=== PATIENT | female | born 1970 | race Two or more races ===

== ENCOUNTER 2019-10-24 17:02 | Emergency (ER) | payer SELFPAY ==
[~2019-10-24] VITALS: Ht 152.4 cm; Wt 55.0 kg
[2019-10-24] MEDS ORDERED: IV NORMAL SALINE 1000ML BAG 1,000 ML IV SCH (17:36)
[2019-10-24 17:52] LABS: BILIRUBIN,URINE NEGATIVE (NEG); CLARITY,URINE CLEAR; COLOR,URINE YELLOW; NITRITE,URINE NEGATIVE (NEG); PH,URINE 6.5 (<5.0-8.0); PROTEIN,URINE NEGATIVE (NEG-TRACE)
--- NOTE | 2019-10-24 17:56 | PHYS DOC ---
Past Medical History Past Medical History: High Cholesterol, Hypertension (AUGUSTINA HAMPTON MD) General Adult EDM: Chief Complaint: FLANK PAIN HPI: HPI: Patient is a 49 year old English-speaking female with history of hypertension and dyslipidemia who presents with complaining of back pain. History was taken via translating line. Patient states she had bilateral arm pain since September 28 and later on the pain moved to her bilateral lower back as a constant pain without radiation. Patient states she has more pain in right hip. Patient complaining of urinary frequency and dysuria that treated with antibiotic in August with improvement of her condition. Patient denies nausea and vomiting, diarrhea and constipation, fever and chills, chest pain or shortness of breath. Patient complaining of generalized weakness and dizziness. Patient stated she had frequent bowel movements without diarrhea. Patient lost 22 pounds for the last couple months. Patient was seen by her primary care physician 4 days ago and had labs and medication without improvement of her condition. Patient rated her pain 8/10. (AUGUSTINA HAMPTON MD) Review of Systems: Review of Systems: Constitutional: Denies fever or chills. [] Eyes: Denies change in visual acuity. [] HENT: Denies nasal congestion or sore throat. [] Respiratory: Denies cough or shortness of breath. [] Cardiovascular: Denies chest pain or edema. [] GI: Denies abdominal pain, nausea, vomiting, bloody stools or diarrhea. [] : Denies dysuria. [] Musculoskeletal: Reports back pain and joint pain Integument: Denies rash. [] Neurologic: Denies headache, focal weakness or sensory changes. [] Endocrine: Denies polyuria or polydipsia. [] Lymphatic: Denies swollen glands. [] Psychiatric: Denies depression or anxiety. [] (AUGUSTINA HAMPTON MD) Heart Score: Risk Factors: Risk Factors: DM, Current or recent (<one month) smoker, HTN, HLP, family history of CAD, obesity. Risk Scores: Score 0 - 3: 2.5% MACE over next 6 weeks - Discharge Home Score 4 - 6: 20.3% MACE over next 6 weeks - Admit for Clinical Observation Score 7 - 10: 72.7% MACE over next 6 weeks - Early Invasive Strategies (AUGUSTINA HAMPTON MD) Current Medications: Current Medications Medications (Trade) Dose Ordered Sig/Jacky Start Time Stop Time Status Last Admin Dose Admin Sodium Chloride 1,000 ml @ 1,000 mls/hr Q1H 10/24/19 17:36 10/24/19 18:35 UNV (AUGUSTINA HAMPTON MD) Physical Exam: PE: Constitutional: Well developed, well nourished, mild distress, non-toxic appearance. [] HENT: Normocephalic, atraumatic. Eyes: PERRLA, EOMI, conjunctiva normal, no discharge. [] Neck: Normal range of motion, no tenderness, supple, no stridor. [] Cardiovascular: Tachycardic, no murmur [] Lungs & Thorax: Bilateral breath sounds clear to auscultation [] Abdomen: Bowel sounds normal, soft, no tenderness, no masses, no pulsatile masses. [] Skin: Warm, dry, no erythema, no rash. [] Back: No tenderness, no CVA tenderness. [] Extremities: No tenderness, no cyanosis, no clubbing, ROM intact, no edema. [] Neurologic: Alert and oriented X 3, no focal deficits noted. [] Psychologic: Affect normal, judgement normal, mood normal. [] (AUGUSTINA HAMPTON MD) EKG: EKG: EKG interpreted by me. EKG at 1745 showed sinus rhythm at rate of 100, poor R wave progression anteroseptal leads, PA and QT intervals, no acute ST and T wave elevation. (AUGUSTINA HAMPTON MD) Radiology/Procedures: Radiology/Procedures: [] (AUGUSTINA HAMPTON MD) Impression: PROCEDURE: CT ABD PELV W/ IV CONTRST ONLY Exam: CT of abdomen and pelvis with contrast INDICATION: Tachycardia TECHNIQUE: Sequential axial images through the abdomen and pelvis obtained following the administration of 75 mL of Omni 300 IV contrast. Sagittal and coronal reformatted images were reconstructed from the axial data and reviewed. Comparisons: None FINDINGS: Heart size is normal. No pericardial effusion. Strandy opacities at dependent portion lungs likely representing atelectasis. No pleural effusion. Liver, spleen, pancreas, gallbladder and adrenals are unremarkable. Kidneys demonstrate symmetric enhancement. No perinephric inflammation or hydronephrosis. No renal or ureteral calculi. Bladder is distended and appears thin-walled. Uterus is nonenlarged. No abnormal adnexal mass. Mild wall thickening involving the descending colon. The remainder of the large and small bowel are unremarkable. Appendix is not identified. No free intra-abdominal air or fluid. Abdominal aorta has a normal course and caliber. Abdominal vasculature is patent. No enlarged abdominal lymph nodes are identified. No suspicious osseous lesions or acute fractures. IMPRESSION: Mild wall thickening involving the descending colon. Findings may relate to mild colitis may be infectious or inflammatory in etiology. Exposure: One or more of the following in the visualized dose reduction techniques were utilized for this examination: 1. Automated exposure control 2. Adjustment of the MA and/or KV according to patient size 3. Use of iterative of reconstructive technique Electronically signed by: Joleen Guerrero MD (10/24/2019 6:57 PM) [id number] DICTATED and SIGNED BY: JOLEEN GUERRERO MD DATE: 10/24/191856 (TAVON RADER Jr., DO) Course & Med Decision Making: Course & Med Decision Making Pertinent Labs and Imaging studies are pending. Evaluation of patient inertial 49-year-old English-speaking female patient complaining of several problem for several weeks including arm pain and back pain and increase of bowel movement and losing weight. Patient had tachycardia of 117 at arrival to ER that decreased to 100 with rest. Labs and chest x-ray and CT abdomen pelvis is pending. There is a concern for hyperthyroidism or electrolyte problem. Sign out given to Dr. Rader at 1800 for further evaluation and final disposition. Discussed current findings and plan with patient and family, who acknowledge understanding and agreement. (AUGUSTINA HAMPTON MD) Dragon Disclaimer: Dragon Disclaimer: This electronic medical record was generated, in whole or in part, using a voice recognition dictation system. (AUGUSTINA HAMPTON MD) Departure Departure Impression: Primary Impression: Back pain Qualified Codes: M54.5 - Low back pain Additional Impressions: Colitis Weight loss Disposition: HOME, SELF-CARE Condition: STABLE Referrals: NO PCP (PCP) Patient Instructions: Back Pain, Adult, Colitis Scripts Acetaminophen With Codeine (TYLENOL WITH CODEINE #3 TABLET) 1 Each Tablet 1 TAB PO PRN Q6HRS PRN for PAIN, #12 TAB Prov: TAVON RADER Jr., DO 10/24/19 Ondansetron (ONDANSETRON ODT) 4 Mg Tab.rapdis 1 TAB PO PRN Q6-8HRS PRN for NAUSEA, #15 TAB Prov: TAVON RADER Jr. DO 10/24/19 Metronidazole (FLAGYL) 500 Mg Tablet 1 TAB PO TID, #30 TAB Prov: TAVON RADER Jr. DO 10/24/19 Ciprofloxacin Hcl (CIPROFLOXACIN HCL) 500 Mg Tablet 1 TAB PO BID, #20 TAB Prov: TAVON RADER Jr. DO 10/24/19 AUGUSTINA HAMPTON MD Oct 24, 2019 17:56 TAVON RADER Jr. DO Oct 24, 2019 19:13
[2019-10-24 17:57] LABS: BASO # 0.1 x10^3/uL (0.0-0.2); BASO % 1 % (0-3); EOS # 0.1 x10^3/uL (0.0-0.7); EOS % 1 % (0-3); HEMATOCRIT 31.2 % (36.0-47.0); HEMOGLOBIN 10.4 g/dL (12.0-15.5); LYMPH # 0.8 x10^3/uL (1.0-4.8); LYMPH % 9 % (24-48); MEAN CORPUSCULAR HEMOGLOBIN 25 pg (25-35); MEAN CORPUSCULAR HGB CONC 33 g/dL (31-37); MEAN CORPUSCULAR VOLUME 76 fL (79-100); MONO # 0.2 x10^3/uL (0.0-1.1); MONO % 2 % (0-9); NEUT # 8.2 x10^3/uL (1.8-7.7); NEUT % 87 % (31-73); PLATELET COUNT 573 x10^3/uL (140-400); RED BLOOD COUNT 4.08 x10^6/uL (3.50-5.40); RED CELL DISTRIBUTION WIDTH 15.2 % (11.5-14.5); WHITE BLOOD COUNT 9.5 x10^3/uL (4.0-11.0)
[2019-10-24 17:57] LABS: BACTERIA,URINE 0 /HPF (0-FEW); RBC,URINE 0 /HPF (0-2); SQUAMOUS EPITHELIAL CELL,UR MOD /LPF; WBC,URINE OCC /HPF (0-4)
--- NOTE | 2019-10-24 17:59 | RAD ---
PORTABLE CHEST 1V 10/24/2019 5:36 PM INDICATION: Tachycardia COMPARISON: None available TECHNIQUE: Portable frontal view of the chest is provided. FINDINGS: The cardiomediastinal silhouette is within normal limits. Lungs are clear. There are no significant pleural effusions. There is no pulmonary vascular congestion. No pneumothorax. No suspicious osseous abnormality. IMPRESSION: There is no acute cardiopulmonary process. Electronically signed by: Barbie Odom MD (10/24/2019 5:56 PM) DREA
[2019-10-24 18:04] LABS: PROTHROMBIN TIME PATIENT 13.4 SEC (11.7-14.0)
[2019-10-24 18:09] LABS: CALCIUM 8.7 mg/dL (8.5-10.1); CREATININE 0.5 mg/dL (0.6-1.0); GFR 131.1
[2019-10-24 18:15] LABS: % BANDS 3 % (0-9); % EOS 2 % (0-5); % LYMPHS 7 % (24-48); % MONOS 1 % (0-10); % SEGS 87 % (35-66)
[2019-10-24 18:16] LABS: PLT ESTIMATE INCREASED (ADEQUATE)
[2019-10-24 18:25] LABS: ALBUMIN 2.6 g/dL (3.4-5.0); ALBUMIN/GLOBULIN RATIO 0.6 (1.0-1.7); MAGNESIUM 1.6 mg/dL (1.8-2.4); TOTAL BILIRUBIN 0.3 mg/dL (0.2-1.0); TOTAL PROTEIN 6.7 g/dL (6.4-8.2)
[2019-10-24] MEDS ORDERED: IOHEXOL 300 MG/ML 100ML VIAL. IV ONE (18:45)
[2019-10-24] MEDS ORDERED: CONTRAST GIVEN. MC PRN (18:45)
--- NOTE | 2019-10-24 19:00 | RAD ---
Exam: CT of abdomen and pelvis with contrast INDICATION: Tachycardia TECHNIQUE: Sequential axial images through the abdomen and pelvis obtained following the administration of 75 mL of Omni 300 IV contrast. Sagittal and coronal reformatted images were reconstructed from the axial data and reviewed. Comparisons: None FINDINGS: Heart size is normal. No pericardial effusion. Strandy opacities at dependent portion lungs likely representing atelectasis. No pleural effusion. Liver, spleen, pancreas, gallbladder and adrenals are unremarkable. Kidneys demonstrate symmetric enhancement. No perinephric inflammation or hydronephrosis. No renal or ureteral calculi. Bladder is distended and appears thin-walled. Uterus is nonenlarged. No abnormal adnexal mass. Mild wall thickening involving the descending colon. The remainder of the large and small bowel are unremarkable. Appendix is not identified. No free intra-abdominal air or fluid. Abdominal aorta has a normal course and caliber. Abdominal vasculature is patent. No enlarged abdominal lymph nodes are identified. No suspicious osseous lesions or acute fractures. IMPRESSION: Mild wall thickening involving the descending colon. Findings may relate to mild colitis may be infectious or inflammatory in etiology. Exposure: One or more of the following in the visualized dose reduction techniques were utilized for this examination: 1. Automated exposure control 2. Adjustment of the MA and/or KV according to patient size 3. Use of iterative of reconstructive technique Electronically signed by: Joleen Davidson MD (10/24/2019 6:57 PM) [id number]
[2019-10-24 19:09] VITALS: BP 133/74
[2019-10-24] MEDS ORDERED: METR500T PO (19:13)
[2019-10-24] MEDS ORDERED: ACET-704 PO (19:13)
[2019-10-24] MEDS ORDERED: CIPR500T PO (19:13)
[2019-10-24] MEDS ORDERED: ONDA4TAB12 PO (19:13)
--- NOTE | 2019-10-25 06:05 | EKG ---
[facility] [address] [place] [address] Test Date: 2019-10-24 Test Time: 17:45:04 Pat Name: OLIVA ALMEIDA Department: Room: Gender: F [employer] Case [employer]: : 1970 Requested By: AUGUSTINA HAMPTON Order Number: [id number] Reading MD: Rolando Alves Measurements Intervals [place] Rate: 100 P: 45 [place]: 128 QRS: 13 QRSD: 68 T: 19 QT: 342 QTc: 444 Interpretive Statements SINUS RHYTHM COMPLEX(ES) WITH ABERRANT INTRAVENTRICULAR CONDUCTION CANNOT RULE OUT ANTEROSEPTAL MYOCARDIAL DAMAGE Electronically Signed On 10-25-2019 11:18:10 CDT by Rolando Alves
== END 2019-10-24 19:55 | disposition home or self-care (01) ==
LOC: ER 17:02
DX: M54.5 Low back pain (principal); K52.9 Noninfective gastroenteritis and colitis, unspecified; R63.0 Anorexia; M25.551 Pain in right hip; R42 Dizziness and giddiness; R30.0 Dysuria; E78.00 Pure hypercholesterolemia, unspecified; I10 Essential (primary) hypertension
CPT/HCPCS: 36415; 71045; 74177; 80053; 81001; 82550; 83605; 83690; 83735; 84443; 84484; 85007; 85025; 85610; 93005; 96360; 99285; J7030; Q9967

== ENCOUNTER → 2019-11-29 | Outpatient (CLI) | payer OTHER ==
[~2019-11-29] MED LIST: ACET-704 PO; CIPR500T PO; IOHEXOL 240 MG/ML 50ML VIAL. PO ONE; IOHEXOL 300 MG/ML 100ML VIAL. IV ONE; METR500T PO; ONDA4TAB12 PO
[2019-11-29 10:15] LABS: CREATININE 0.4 mg/dL (0.6-1.0); GFR 169.7
--- NOTE | 2019-11-29 11:30 | RAD ---
CT CHEST ABD PELVIS W/CONTRAST Indication: Leukocytosis, elevated liver function tests, chronic cough Technique: Postcontrast CT imaging was performed of the chest, abdomen, pelvis, multiplanar reconstruction images submitted. Oral contrast was also given. One or more of the following individualized dose reduction techniques were utilized for this examination: 1. Automated exposure control 2. Adjustment of the mA and/or kV according to patient size 3. Use of iterative reconstruction technique. Comparison: There is no previous chest CT available. There is October 24, 2019 CT abdomen pelvis for comparison. CHEST: Findings: There is some motion degradation. There is no infiltrate, pleural or pericardial fluid, pneumothorax, or suspicious pulmonary nodularity. Major airways are patent. Very mild dependent density of the right lower lobe is likely mild atelectasis. No significantly enlarged nodes are identified of the chest. Thoracic aortic caliber is within normal limits, no intraluminal flap. There is mild pectus excavatum. IMPRESSION: 1. No significant abnormality is identified. Abdomen pelvis FINDINGS: No focal abnormality is identified of the liver, spleen, or pancreas. Gallbladder is present without obvious intraluminal abnormality by CT. There is no adrenal nodularity. Both kidneys enhance, no hydronephrosis. There is no significant inflammatory type change about the bowel. Uterus is deviated to the left pelvis, somewhat heterogeneous appearance greater near the fundus. There is some gas distention of rectum. Normal caliber appendix is visualized without adjacent inflammatory change, mostly filled with contrast, some gas distally in the lumen. Intervertebral disc spaces are maintained. IMPRESSION: 1.No significant acute abnormality is identified. 2. There is some heterogeneity of the uterus greater near the fundus, evaluation for underlying mass better characterized with ultrasound as per clinical indication. Electronically signed by: Terence Currie MD (11/29/2019 11:27 AM) [id number]
== END | disposition home or self-care (01) ==
LOC: CT 09:17
PROVIDERS: ATTEND Physician Assistant Medical
DX: Q67.6 Pectus excavatum (principal); N85.8 Other specified noninflammatory disorders of uterus; K62.89 Other specified diseases of anus and rectum; R05 Cough; D72.829 Elevated white blood cell count, unspecified; R79.89 Other specified abnormal findings of blood chemistry
CPT/HCPCS: 36415; 71260; 74177; 82565; Q9966; Q9967